=== PATIENT | male | born 1960 | race African-American/Black ===

== ENCOUNTER 2018-08-01 10:16 | Emergency (ER) | payer MEDICAID ==
[~2018-08-01] VITALS: Ht 190.5 cm; Wt 136.1 kg
[2018-08-01 10:17] VITALS: BP 130/82
[2018-08-01] MEDS ORDERED: Albuterol/Ipratropium 3ml neb HHN ONE (11:45)
[2018-08-01 12:04] LABS: HEMATOCRIT 44.1 % (42.0-52.0); HEMOGLOBIN 14.9 G/DL (14.2-18.0); MEAN CORPUSCULAR VOLUME 97 FL (80-99); PLATELET COUNT 159 K/UL (150-450); RED BLOOD COUNT 4.57 M/UL (4.70-6.10); RED CELL DISTRIBUTION WIDTH 11.6 % (11.6-14.8); WHITE BLOOD COUNT 4.6 K/UL (4.8-10.8)
[2018-08-01 12:16] LABS: ANION GAP 8 mmol/L (5-15); BLOOD UREA NITROGEN 11 mg/dL (7-18); CALCIUM 8.7 MG/DL (8.5-10.1); CARBON DIOXIDE 27 MMOL/L (21-32); CHLORIDE 104 MMOL/L (98-107); CREATININE 1.2 MG/DL (0.55-1.30); POTASSIUM 3.8 MMOL/L (3.5-5.1); SODIUM 139 MMOL/L (136-145)
[2018-08-01 12:22] LABS: ALANINE AMINOTRANSFERASE 445 U/L (12-78); ALBUMIN 3.5 G/DL (3.4-5.0); ALBUMIN/GLOBULIN RATIO 0.9 (1.0-2.7); ALKALINE PHOSPHATASE 100 U/L (46-116); ASPARTATE AMINO TRANSFERASE 568 U/L (15-37); BILIRUBIN,TOTAL 0.9 MG/DL (0.2-1.0)
[2018-08-01 13:00] VITALS: BP 127/67
[2018-08-01] MEDS ORDERED: ALBUTEROL SULF8.5 GM INH (13:44)
[2018-08-01] MEDS ORDERED: [UNRECOGNIZED DRUG - OTHER] ORAL (13:44)
[2018-08-01] MEDS ORDERED: PREDNISONE20 MG ORAL (13:44)
[2018-08-01 14:00] VITALS: BP 129/89
--- NOTE | 2018-08-04 08:31 | Emergency Room Report ---
History of Present Illness General Chief Complaint: Flu Like Symptoms Source: Patient Present Illness HPI Patient is a 58-year-old male who presented after increased. Cough and difficulty breathing. Patient gradual onset of symptoms. Patient reports having increased generalized body aches. He is not a smoker. Patient reports having increased cough with yellow phlegm intermittently. Patient been sick for several days. Allergies: Coded Allergies: No Known Allergies (Unverified , 08/01/18) Patient History Past Medical History: see triage record Reviewed Nursing Documentation: PMH: Agreed; PSxH: Agreed Nursing Documentation-PMH Past Medical History: No History, Except For Hx Hypertension: Yes Hx Gastrointestinal Problems: Yes - GERD Review of Systems All Other Systems: negative except mentioned in HPI Physical Exam Vital Signs Date Time Temp Pulse Resp B/P (MAP) Pulse Ox O2 Delivery O2 Flow Rate FiO2 08/01/18 10:10 98.4 77 18 130/82 98 Room Air 08/01/18 12:26 21 Sp02 EP Interpretation: reviewed, normal General Appearance: normal inspection, well appearing, no apparent distress, alert, GCS 15 Head: atraumatic ENT: normal ENT inspection, hearing grossly normal, normal voice Neck: normal inspection, full range of motion, supple, no bony tend Respiratory: normal inspection, lungs clear, normal breath sounds, no respiratory distress, no retraction, no wheezing Cardiovascular #1: regular rate, rhythm, no edema Gastrointestinal: normal inspection, normal bowel sounds, non tender, soft, no guarding, no hernia Genitourinary: no CVA tenderness Musculoskeletal: normal inspection, back normal, normal range of motion Neurologic: normal inspection, alert, oriented x3, responsive, speech normal Psychiatric: normal inspection, judgement/insight normal, mood/affect normal Skin: normal inspection, normal color, no rash Medical Decision Making Diagnostic Impression: Primary Impression: Bronchitis ER Course Patient presented for cough. Differential diagnosis included but was not limited to bronchitis, pneumonia, pulmonary embolism, pericarditis, asthma, foreign body. Because of complexity of patient's case laboratory testing and imaging studies were ordered. Laboratory studies were notable for an elevation of his liver function test. Patient was noted to have some improvement after breathing treatments. Last Vital Signs Date Time Temp Pulse Resp B/P (MAP) Pulse Ox O2 Delivery O2 Flow Rate FiO2 08/01/18 14:00 98.2 98 22 129/89 98 Room Air 08/01/18 14:00 21 Disposition: HOME, SELF-CARE Condition: Stable Scripts Prednisone* (PREDNISONE*) 20 Mg Tablet 40 MG ORAL DAILY, #10 TAB Prov: David Monique MD 08/01/18 Guaifenesin/D-Methorphan Hb/Pe (ADLT WAL-TUSSIN COUGH-COLD CF) 118 Ml Liquid 5 ML ORAL Q4H, #120 ML Prov: David Monique MD 08/01/18 Albuterol Sulfate* (ALBUTEROL SULFATE MDI*) 8.5 Gm Hfa.aer.ad 2 PUFF INH Q6H, #1 EA 0 Refills Prov: David Monique MD 08/01/18 Patient Instructions: Acute Bronchitis David Monique MD Aug 04, 2018 08:31
== END 2018-08-01 14:00 | disposition home or self-care (01) ==
LOC: EDBD 10:16 → EMR 11:24
DX: J40 Bronchitis, not specified as acute or chronic (principal); I10 Essential (primary) hypertension; K21.9 Gastro-esophageal reflux disease without esophagitis
CPT/HCPCS: 36415; 80053; 85007; 85025; 86710; 94640; 94664; 96360; 99284; J7620